=== PATIENT | female | born 1935 | race African-American/Black ===

== ENCOUNTER 2017-08-31 16:08 | Inpatient (IN) | payer MEDICARE, OTHER ==
[~2017-08-31] VITALS: Ht 162.6 cm; Wt 68.0 kg
[~2017-08-31 16:08] MED LIST: AMLODIPINE BESY10 MG ORAL; ATORVASTATIN CA20 MG ORAL; CATAPRES0.1 MG ORAL; CLONIDINE0.1 MG ORAL; COMPAZINE10 M2 PO; COMPAZINE10 MG ORAL; COUMADIN10 MG ORAL; DETROL2 MG ORAL; DIGOXIN0.125 MG/2 ORAL; DITROPAN10 MG ORAL; ECOTRIN81 MG ORAL; FAMOTIDINE20 MG ORAL; LANOXIN125 MCG ORAL; LOPRESSOR25 M1 ORAL; LOW DOSE ASPIRI81 MG PO; MEROPENEM500 MG IV; METOPROLOL TART25 MG ORAL; METOPROLOL TART50 M1 ORAL; MULTI VITAMIN1 EACH ORAL; MULTIVITAMINS1 EAC2 ORAL; NITROGLYCERIN0.4 MG SL; NORVASC10 MG ORAL; OLANZAPINE2.5 MG ORAL; SALINE 10ML FLU10 ML IVF; SIMVASTATIN20 MG ORAL; SINEMET 25-1001 EAC1 ORAL; TYLENOL650 MG/20. ORAL; XARELTO15 MG ORAL; ZYPREXA2.5 MG ORAL
[2017-08-31] MEDS ORDERED: MILK OF MA400 MG/51 ORAL (16:15)
[2017-08-31] MEDS ORDERED: NEPHROVITE1 TAB ORAL (16:15)
[2017-08-31] MEDS ORDERED: Acetaminophen 650 MG SUPP RECTAL ONE (16:30)
[2017-08-31 16:32] VITALS: BP 97/59
--- NOTE | 2017-08-31 16:34 | Emergency Room Report ---
History of Present Illness General Chief Complaint: General Complaint Source: Patient Present Illness HPI 82-year-old female, coming from care home, history of COPD, paroxysmal atrial fibrillation, Parkinson's disease, CHF, CAD, G2, colostomy, left-sided nephrostomy (for apparent large left renal calculi), presenting with low blood pressure and blood coming from left nephrostomy. Upon medical records, the patient was recently discharged from outside hospital on August 28. Patient was admitted for nephrostomy tube dislodgment. She had it replaced. Patient had borderline blood pressure, afebrile. Patient is awake alert, however poor historian Allergies: Coded Allergies: No Known Allergies (Verified , 02/10/08) Patient History Past Medical History: see triage record Past Surgical History: none Pertinent Family History: none Reviewed Nursing Documentation: PMH: Agreed, PSxH: Agreed Nursing Documentation-PMH Past Medical History: No History, Except For Hx Cardiac Problems: Yes - AFIB Hx Hypertension: Yes - HYPERLIPIDEMIA Hx Pacemaker: Yes Hx Asthma: No - SEPSIS Hx Cancer: No Hx Gastrointestinal Problems: No - GERD Hx Neurological Problems: Yes - hx of dementia Hx Cerebrovascular Accident: No Hx Dementia: Yes Hx Parkinson's Disease: Yes Hx Syncope: Yes Hx Weakness: Yes Review of Systems All Other Systems: limited Physical Exam Vital Signs Date Time Temp Pulse Resp B/P (MAP) Pulse Ox O2 Delivery O2 Flow Rate FiO2 08/31/17 16:00 97.0 120 18 105/70 97 Room Air Sp02 EP Interpretation: reviewed, normal General Appearance: other - Elderly, chronically ill patient, awake and alert, currently does not appear to be in pain or acute distress Head: normocephalic, atraumatic Eyes: bilateral eye normal inspection, bilateral eye PERRL, bilateral eye EOMI ENT: normal ENT inspection, normal pharynx, normal voice, moist mucus membranes Neck: normal inspection, full range of motion, supple Respiratory: normal inspection, lungs clear, normal breath sounds, no respiratory distress, no retraction, no wheezing, speaking full sentences, chest symmetrical Cardiovascular #1: normal inspection, regular rate, rhythm, normal capillary refill Cardiovascular #2: 2+ radial (R), 2+ radial (L) Gastrointestinal: other - G-tube in place, right-sided colostomy, left-sided nephrostomy draining gross hematuria Musculoskeletal: normal inspection, back normal, normal range of motion, non- tender Neurologic: alert, responsive, motor strength/tone normal, sensory intact, speech normal Skin: normal inspection, normal color, no rash, warm/dry, well hydrated, normal turgor Procedures Critical Care Time Critical Care Time 40 minutes of CC time 82-year-old female, low blood pressure, hematuria VS: Tachycardic, febrile, borderline hypotensive Airway patent. Not hypoxic. PLAN: IV access, labs, lactate, troponin, Blood/Urine Cx, Abx, IVF Anticipate admission to Tele vs. LUCY CC time also includes review of labs, review of EMR, discussion with family and paperwork from SNF, d/w hospitalist CC could include dosing of pressors, additional Abx CC time does not include procedures Medical Decision Making Diagnostic Impression: Primary Impression: UTI (urinary tract infection) Additional Impressions: Hematuria Severe sepsis ER Course 82-year-old female, bleeding from left-sided nephrostomy, also found to be febrile with a borderline blood pressure DDX: Sepsis 2/2 UTI, PNA, bacteremia Left-sided nephrostomy tube complication Plan: Airway patent, not hypoxic IV fluid for 30 mL per kg bolus will not be given due to patient having CHF Obtain labs including cbc, bmp, blood culture, lactate, ua, ucx CXR EKG Broad spectrum ABX ER course: Pt's airway remains patent, supplemental O2 provided by NC Given broad spectrum abx - vancomycin and cefepime BP improved with fluids mental status remains awake and alert Sepsis Re-examination Time: 6 PM VS: Temp 99 HR 115 BP 135/75 RR 25 CVS: RRR Respiratory: Lungs clear bilaterally Peripheral pulses: 2+ radial Capillary refill: <2 seconds Skin exam: warm, dry, no rash, not mottled Disposition: Patient will admitted to telemetry Patient requires close monitoring of respiratory/hemodynamic status and continuation of IV antibiotics. D/W Hospitalist ANDRES Carlin Please note that this Emergency Department Report was dictated using Portable Scoresther[employer] molder technology software, occasionally this can lead to erroneous entry secondary to interpretation by the dictation equipment. EKG Diagnostic Results EP Interpretation: Yes Rate: Tachycardic Rhythm: NSR ST Segments: ST depressions notedII2 and aVF ASA given to patient: No Rhythm Strip EP Interpretation: Yes Rate: 121 Rhythm: NSR, no PVCs, no ectopy Chest X-ray CXR: Ordered: Yes 1 view Indication: Chest pain EP interpretation: Yes Interpretation: No consolidation, no effusion, no PTX, no acute cardiopulmonary disease, gastric distention Impression: Gastric distention Electronically signed by Robles Moore MD Laboratory Tests Test 08/31/17 17:00 08/31/17 17:45 White Blood Count 19.1 K/UL (4.8-10.8) H Red Blood Count 4.60 M/UL (4.20-5.40) Hemoglobin 13.3 G/DL (12.0-16.0) Hematocrit 43.0 % (37.0-47.0) Mean Corpuscular Volume 93 FL (80-99) Mean Corpuscular Hemoglobin 29.0 PG (27.0-31.0) Mean Corpuscular Hemoglobin Concent 31.0 G/DL (32.0-36.0) L Red Cell Distribution Width 13.3 % (11.6-14.8) Platelet Count 200 K/UL (150-450) Mean Platelet Volume 7.2 FL (6.5-10.1) Neutrophils (%) (Auto) 96.2 % (45.0-75.0) H Lymphocytes (%) (Auto) 1.9 % (20.0-45.0) L Monocytes (%) (Auto) 1.5 % (1.0-10.0) Eosinophils (%) (Auto) 0.0 % (0.0-3.0) Basophils (%) (Auto) 0.3 % (0.0-2.0) Prothrombin Time 12.7 SEC (9.30-11.50) H Prothrombin Time INR 1.2 (0.9-1.1) H PTT 29 SEC (23-33) Sodium Level 140 MMOL/L (136-145) Potassium Level 4.5 MMOL/L (3.5-5.1) Chloride Level 103 MMOL/L (98-107) Carbon Dioxide Level 25 MMOL/L (21-32) Anion Gap 12 mmol/L (5-15) Blood Urea Nitrogen 26 mg/dL (7-18) H Creatinine 1.4 MG/DL (0.55-1.30) H Estimate Glomerular Filtration Rate mL/min (>60) Glucose Level 149 MG/DL (74-106) H Lactic Acid Level 6.40 mmol/L (0.66-2.22) H 7.90 mmol/L (0.66-2.22) H Calcium Level 10.2 MG/DL (8.5-10.1) H Total Bilirubin 0.8 MG/DL (0.2-1.0) Aspartate Amino Transferase (AST) 50 U/L (15-37) H Alanine Aminotransferase (ALT) 19 U/L (12-78) Alkaline Phosphatase 107 U/L (46-116) Troponin I 0.000 ng/mL (0.000-0.056) Pro-B-Type Natriuretic Peptide 718 pg/mL (0-125) H Total Protein 8.6 G/DL (6.4-8.2) H Albumin 2.6 G/DL (3.4-5.0) L Globulin 6.0 g/dL Albumin/Globulin Ratio 0.4 (1.0-2.7) L Urine Color Red Urine Appearance Turbid Urine pH 7 (4.5-8.0) Urine Specific Hobson 1.010 (1.005-1.035) Urine Protein 4+ (NEGATIVE) H Urine Glucose (UA) Negative (NEGATIVE) Urine Ketones 1+ (NEGATIVE) H Urine Occult Blood 5+ (NEGATIVE) H Urine Nitrite Negative (NEGATIVE) Urine Bilirubin Negative (NEGATIVE) Urine Urobilinogen Normal MG/DL (0.0-1.0) Urine Leukocyte Esterase 3+ (NEGATIVE) H Urine RBC Tntc /HPF (0 - 2) H Urine WBC Tntc /HPF (0 - 2) H Urine Squamous Epithelial Cells None /LPF (NONE/OCC) Urine Bacteria Moderate /HPF (NONE) H Last Vital Signs Date Time Temp Pulse Resp B/P (MAP) Pulse Ox O2 Delivery O2 Flow Rate FiO2 08/31/17 16:00 97.0 120 18 105/70 97 Room Air Disposition: ADMITTED INPATIENT Condition: Robles Noe M.D. Aug 31, 2017 16:34
--- NOTE | 2017-08-31 17:06 | Diagnostic Imaging Report ---
Indication: Chest pain Comparison: 07/28/2015 A single view chest radiograph was obtained. Findings: Heart size is normal. Pulmonary vascularity is within normal limits. Exam limited by rotation. Focus of a mediastinal calcification may be related to old granulomatous disease. This is not for certain. The aorta is diffusely ectatic. Bones are osteopenic. Lung volumes are low bilaterally. IMPRESSION: No change from the prior study. No infiltrate or other acute disease identified. Cardiomegaly and atherosclerotic disease of the aorta. Osteoporosis
[2017-08-31] MEDS ORDERED: Cefepime HCl 1 GM in NS 55 ML IV ONE (17:15)
[2017-08-31] MEDS ORDERED: Vancomycin 1 GM in NS 275 ML IVPB ONE (17:15)
[2017-08-31 17:17] LABS: HEMOGLOBIN 13.3 G/DL (12.0-16.0); MEAN CORPUSCULAR VOLUME 93 FL (80-99); PLATELET COUNT 200 K/UL (150-450); RED CELL DISTRIBUTION WIDTH 13.3 % (11.6-14.8); WHITE BLOOD COUNT 19.1 K/UL (4.8-10.8)
[2017-08-31 17:18] LABS: BASOPHILS % (AUTO) 0.3 % (0.0-2.0); LYMPHOCYTES % (AUTO) 1.9 % (20.0-45.0); MONOCYTES % (AUTO) 1.5 % (1.0-10.0); NEUTROPHILS % (AUTO) 96.2 % (45.0-75.0)
[2017-08-31] MEDS ORDERED: Cefepime 1gm vial ONE (17:22)
[2017-08-31] MEDS ORDERED: Vancomycin 1gm inj IVPB ONE (17:22)
[2017-08-31 17:27] LABS: INR 1.2 (0.9-1.1)
[2017-08-31 17:28] VITALS: BP 147/81
[2017-08-31 17:33] LABS: ANION GAP 12 mmol/L (5-15); BLOOD UREA NITROGEN 26 mg/dL (7-18); CALCIUM 10.2 MG/DL (8.5-10.1); CARBON DIOXIDE 25 MMOL/L (21-32); CHLORIDE 103 MMOL/L (98-107); CREATININE 1.4 MG/DL (0.55-1.30); POTASSIUM 4.5 MMOL/L (3.5-5.1); SODIUM 140 MMOL/L (136-145)
[2017-08-31] MEDS ORDERED: NS 275 ML ONE (17:41)
[2017-08-31 17:43] LABS: ALANINE AMINOTRANSFERASE 19 U/L (12-78); ALBUMIN 2.6 G/DL (3.4-5.0); ALBUMIN/GLOBULIN RATIO 0.4 (1.0-2.7); ALKALINE PHOSPHATASE 107 U/L (46-116); ASPARTATE AMINO TRANSFERASE 50 U/L (15-37); BILIRUBIN,TOTAL 0.8 MG/DL (0.2-1.0)
[2017-08-31 18:21] LABS: APPEARANCE,URINE TURBID; BILIRUBIN, URINE NEGATIVE (NEGATIVE); COLOR,URINE RED; GLUCOSE, URINE (UA) NEGATIVE (NEGATIVE); KETONES,URINE 1+ (NEGATIVE); LEUKOCYTE ESTERASE ,URINE 3+ (NEGATIVE); NITRITE,URINE NEGATIVE (NEGATIVE); PH,URINE 7 (4.5-8.0); PROTEIN,URINE 4+ (NEGATIVE); UROBILINOGEN,URINE NORMAL MG/DL (0.0-1.0)
[2017-08-31 18:25] VITALS: BP 135/75
[2017-08-31 20:01] VITALS: BP 103/55
[2017-09-01] VITALS: BP 100/58
[2017-09-01 04:00] VITALS: BP 109/61
[2017-09-01 08:00] VITALS: BP 99/44
[2017-09-01 08:13] LABS: ANION GAP 9 mmol/L (5-15); BLOOD UREA NITROGEN 24 mg/dL (7-18); CALCIUM 9.3 MG/DL (8.5-10.1); CARBON DIOXIDE 25 MMOL/L (21-32); CHLORIDE 109 MMOL/L (98-107); CREATININE 1.3 MG/DL (0.55-1.30); POTASSIUM 4.5 MMOL/L (3.5-5.1); SODIUM 142 MMOL/L (136-145)
--- NOTE | 2017-09-01 08:34 | History & Physical ---
History and Physical History & Physicial [id number] hematuria replaced dislodged left nephrostomy tube at [facility] dc 08/29/17 recurrent uti on meropenem upon admission sepsis pd cad hx of ileostomy and Aileen pouch pCM prior to admission [facility] JOSE ELIAS HERNANDEZ DO Sep 01, 2017 08:34
[2017-09-01 08:47] LABS: HEMATOCRIT 30.9 % (37.0-47.0); HEMOGLOBIN 9.9 G/DL (12.0-16.0); MEAN CORPUSCULAR VOLUME 92 FL (80-99); PLATELET COUNT 148 K/UL (150-450); RED BLOOD COUNT 3.36 M/UL (4.20-5.40)
[2017-09-01] MEDS: Meropenem 500 MG in NS 55 ML IVPB SCH ×2 (09:26→21:01)
[2017-09-01 10:13] LABS: WHITE BLOOD COUNT 23.5 K/UL (4.8-10.8)
[2017-09-01 12:00] VITALS: BP 100/80
--- NOTE | 2017-09-01 12:03 | Diagnostic Imaging Report ---
Indication: Acute renal failure Technique: Grayscale and duplex images of the kidneys, retroperitoneum, and bladder were obtained. Comparison: 11/18/2011 Findings: Right kidney measures 9.4 cm in length. Left kidney measures 8.7 cm in length. Both kidneys demonstrate normal echogenicity. No hydronephrosis. 6 a calcification is seen in the lower pole of the left kidney. This was not definitely demonstrated previously. Normal inferior vena cava. Bladder is normal, nondistended. Impression: Negative for hydronephrosis Nonobstructive left lower pole intrarenal calculus.
[2017-09-01 16:00] VITALS: BP 140/91
--- NOTE | 2017-09-01 16:00 | Cardiology Report ---
APPROVED REPORT EKG Measurement Heart [id number] Sinus tachyarrhythmia with PAC's Increased R/S ratio in V1, consider early transition or posterior infarct T wave abnormality, consider inferior ischemia Abnormal ECG
[2017-09-01 20:00] VITALS: BP 105/66
[2017-09-02] VITALS: BP 115/48
[2017-09-02] MEDS ORDERED: Sterile Water Irrig 1000ml IRRIG ONE (04:44)
[2017-09-02] MEDS ORDERED: Tubing IV Secondary IV ONE (04:44)
[2017-09-02] MEDS ORDERED: Vancomycin 1250mg/D5W 250ml IVPB SCH (17:00)
--- NOTE | 2017-09-02 23:04 | History and Physical Report ---
DATE OF ADMISSION: 08/31/2017 REASON FOR ADMISSION: Hematuria. HISTORY OF PRESENT ILLNESS: This is an elderly female who was recently discharged from [facility] on 08/29/2017 after dislodged left nephrostomy tube that was replaced by Interventional Radiology. She has had persistent hematuria and was brought to the emergency room for further evaluation. She apparently had hypotension and significant bleeding. No reports of nausea, vomiting, or diarrhea. The patient is a poor historian. The patient did come in on [facility] Chest x-ray in the emergency room was negative. PAST MEDICAL HISTORY: Paroxysmal atrial fibrillation, COPD, Parkinson disease, CHF, coronary artery disease, colostomy, left side nephrostomy tube, apparently placed for large left renal calculi and hydronephrosis, and protein-calorie malnutrition. SURGICAL HISTORY: Nephrostomy tube on the left, PEG placement, ileostomy in the right lower quadrant. MEDICATIONS: Prehospital medications reviewed, reconciled, and documented in the electronic medical record by dose, frequency, and route. ALLERGIES: None. SOCIAL HISTORY: Negative for tobacco, alcohol, or drugs. FAMILY HISTORY: Unreliable from the patient. REVIEW OF SYSTEMS: Unreliable as well. PHYSICAL EXAMINATION: GENERAL: At the time of my exam, she is alert, she is oriented to person. VITAL SIGNS: At the time of my exam, she is afebrile, pulse is 82, blood pressure 109/61. She is 97% on 2 L. HEENT: She is normocephalic and atraumatic. Oropharynx is moist. She is edentulous. NECK: Supple without any stiffness or lymphadenopathy. LUNGS: Decreased at the bases. No wheeze present. HEART: Regular rate and rhythm without murmur. ABDOMEN: Soft, nontender. Ileostomy is present. G-tube site is present. EXTREMITIES: With trace lower extremity edema. Moves all extremities spontaneously. The patient is nonambulatory at baseline. LABORATORY VALUES: White count is 19.1, hemoglobin of 13.3, and platelets are 200,000. Her sodium is 140, potassium 4.5, chloride , bicarbonate 25, BUN 26, creatinine 1.4, and glucose is 149. Her lactates were serially drawn at 6.4, 7.9, and 5.5. Calcium is elevated at 10.2. Troponin was negative. DERMATOLOGY SPECIALIST mildly elevated at 718. Her urinalysis was positive for leukocytes and heme. Her INR was 1.2. ASSESSMENT AND PLAN: 1. Gross hematuria. 2. Recent nephrostomy tube dislodgement, status post replacement by Interventional Radiology at [facility] and discharged on 08/29/2017. Nephrostomy tube is secondary to large left renal calculi and has been in place since 01/02/2017. 3. Recurrent urinary tract infections, on meropenem prior to admission. No reports of the sensitivities of urinalysis performed at [facility] prior to discharge. 4. History of renal insufficiency. 5. Hypernatremia. 6. Protein-calorie malnutrition, status post colectomy and Aileen pouch ileostomy, currently on tube feedings. 7. Parkinson disease. 8. Coronary artery disease and paroxysmal atrial fibrillation, currently not on anticoagulation due to recurrent hematuria, as risks of anticoagulation outweighed benefits, per the primary care physician. Plan for the patient, Urology will see the patient. Dr. Veronica has been called. H and H is pending this morning. IV antibiotics have been broadened to include vancomycin in light of white count, on meropenem. P.r.n. nebulizers, G-tube feeds and G-tube feeding. Aspiration precautions. We will transfuse if hemoglobin less than 8 with active bleeding and we will obtain a renal ultrasound and defer further management of hematuria to Dr. Veronica who will see the patient this morning. Angelina Mazariegos D.O. DR: Roman JOB#: [id number] CC:
--- NOTE | 2017-09-02 23:05 | Consultation ---
DATE OF CONSULTATION: 09/01/2017 REFERRING PHYSICIAN: Gavin Carlin M.D. CONSULTING PHYSICIAN: Richard Veronica M.D. REASON FOR CONSULTATION: Evaluation of . HISTORY OF PRESENT ILLNESS: This is an 82-year-old female. She has a history of nephrolithiasis, history of hydronephrosis, history of left nephrostomy and the nephrostomy was recently exchanged at [facility]. She was brought back because of hematuria and UTI. I am unable to get any history from the patient. Most of the history was obtained from the chart. PAST MEDICAL HISTORY: Significant for above, again history of nephrolithiasis, history of coronary artery disease, and history of dementia. PAST SURGICAL HISTORY: Ileostomy and Aileen pouch. MEDICATIONS: Current mediation list was reviewed. She is on meropenem and vancomycin. ALLERGIES: No known drug allergies. SOCIAL HISTORY: She is a resident of prison. FAMILY HISTORY: Unable to obtain. REVIEW OF SYSTEMS: Unable to obtain. PHYSICAL EXAMINATION: GENERAL: Elderly female, no acute distress. VITAL SIGNS: Temperature is 96.9 degrees and blood pressure is 99/44. NECK: Supple. ABDOMEN: Soft. GENITOURINARY: There is a left nephrostomy. Urine is dark bloody. EXTREMITIES: No clubbing. LABORATORY AND DIAGNOSTIC DATA: UA showed too numerous to count RBCs, too numerous to count WBCs, moderate bacteria, and 4+ protein. White count is 23.5, hemoglobin 9.9 and hemoglobin was 13.3 yesterday and platelets are 148. BUN is 24 and creatinine is 1.3. Diagnostic imaging studies, the patient had a chest x-ray, which was reviewed. There is no recent renal imaging here. She did have a CT scan of the abdomen and pelvis back in 2013 and at that time, there was mention of mild to moderate left hydronephrosis, ureteral calculus, nonobstructive calculi, some mild bilateral renal cortical thinning. IMPRESSION: 1. Gross hematuria. 2. Hydronephrosis history. 3. Nephrolithiasis. 4. Urinary tract infection. 5. Proteinuria. 6. Urinary incontinence by report. 7. Neurogenic bladder. 8. Renal atrophy. PLAN AND DISCUSSION: The patient has a nephrostomy tube. The urine draining is bloody dark. I do not see active bleeding. I would personally hand irrigated the nephrostomy, its position is good and no clots. I will recommend to monitor with antibiotics as ordered. Hemoglobin and hematocrit will be monitored. Further recommendations pending. Thank you for this consultation. Richard Veronica M.D. DR: DARIO JOB#: [id number] CC:
--- NOTE | 2017-09-05 12:46 | Discharge Summary ---
Discharge Summary Hospital Course Date of Admission Aug 31, 2017 at 17:29 Date of Discharge Sep 02, 2017 at 04:45 Admitting Diagnosis sepsis HPI Desmond Lee is a 82 year old female who was admitted on Aug 31, 2017 at 17: 29 for Sepsis Hospital Course dc summary #[id number] Discharge Discharge Disposition Patient was discharged to [facility] Discharge Diagnoses: Discharge Instructions Discharge Instructions Special Instructions I have been assigned to complete a D/C Summary on this account. I was not involved in the patient management Wilma Phillips NP (Vanchtein) Sep 05, 2017 12:46
--- NOTE | 2017-09-06 05:16 | Discharge Summary 2 SIG ---
DATE OF ADMISSION: 08/31/2017 DATE OF DISCHARGE: 09/02/2017 REASON FOR ADMISSION: 82-year-old female with a history of COPD, paroxysmal atrial fibrillation, Parkinson disease, CHF, coronary artery disease, colostomy, left nephrostomy, secondary to nephrolithiasis with a history of colectomy and Aileen's pouch ileostomy, currently on tube feeding, presented to the emergency department for evaluation due to the borderline blood pressure and bleeding from left nephrostomy tube. The patient had a recent replacement of nephrostomy tube due to the dislodgement at [facility]. The patient was hypotensive -97/59, febrile - 101.2, tachycardic - 102. Lactic acid - 6.4. Troponin was negative. Pro BNP -718. Urinalysis with evidence of UTI. WBC -19.1. The patient admitted with diagnoses of sepsis, UTI, and hematuria. HOSPITAL COURSE: The patient admitted. Urology consult was requested. The patient started on empiric antibiotics and IV fluids. Urology seen and evaluated the patient. Nephrostomy tube was draining dark blood tinged urine. However, no active bleeding was seen. Urologist personally irrigated the nephrostomy tube and confirmed good position and no clots. He recommended to monitor and continue antibiotics for urinary tract infection. The patient was on empiric antibiotics. Next day, leukocytosis trending up- 23.5. Fever resolved. Tachycardia with some improvement. Blood culture revealed Klebsiella pneumoniae ESBL high grade as well as a Proteus mirabilis. Urine culture revealed Klebsiella pneumoniae, carbapenem resistant, Providencia, and E. Coli. Hemoglobin was trending down next day- 9.9, hematocrit- 30.9. Hematuria improved. Hemoglobin and hematocrit were closely monitored with goal to keep hemoglobin above 8. Renal ultrasound revealed evidence of nonobstructive left lower pole intrarenal calculus, but was negative for hydronephrosis and showed normal echogenicity of bilateral kidneys. Patient with history of paroxysmal atrial fibrillation. Currently not on anticoagulation due to recurrent hematuria, risk outweigh the benefits. Family requested to transfer the patient to [facility] where her usual doctor was. The patient was placed on waiting list, bed was available and the patient subsequently was transferred. The patient was stable for transfer to [facility] for further management. FINAL DIAGNOSES: 1. Severe sepsis with Klebsiella pneumoniae ESBL and Proteus bacteremia. 2. Polymicrobial UTI: Carbapenem-resistant Klebsiella pneumonia/Providencia/E coli urinary tract infection with history of recurrent urinary tract infections. 3. Gross hematuria. 4. Severe protein-calorie malnutrition. 5. History of renal insufficiency. 6. Neurogenic bladder. 7. Nephrolithiasis. 8. Parkinson disease. 9. Coronary artery disease. 10. Paroxysmal atrial fibrillation 11. Status post colectomy and Aileen's pouch ileostomy, on tube feedings. 12. Strict aspiration precautions maintained. The patient able to tolerate tube feeding. DISCHARGE MEDICATIONS: List of medication was sent to accepting facility. DISCHARGE INSTRUCTIONS: The patient was discharged to [facility]. Follow up with medical doctor at the facility. Gavin Carlin M.D. I have been assigned to dictate discharge summary on this account and I was not involved in the patient's management. Wilma Taylorkim N.PGretchen DR: ALEJANDRO JOB#: [id number] CC: STEPHANIE
== END 2017-09-02 04:45 | disposition short-term general hospital (02) | DRG 871 ==
LOC: EDBD 16:08 → EMR 17:22 → 2E 17:29 → EDBEDREQ 18:35 → 2E 20:51
DX: A41.89 Other specified sepsis (principal); E43 Unspecified severe protein-calorie malnutrition; G20 Parkinson's disease; I48.0 Paroxysmal atrial fibrillation; N39.0 Urinary tract infection, site not specified; F03.90 Unspecified dementia, unspecified severity, without behavioral disturbance, psychotic disturbance, mood disturbance, and anxiety; Z43.1 Encounter for attention to gastrostomy; J44.9 Chronic obstructive pulmonary disease, unspecified; N26.1 Atrophy of kidney (terminal); Z16.12 Extended spectrum beta lactamase (ESBL) resistance; N20.0 Calculus of kidney; I25.10 Atherosclerotic heart disease of native coronary artery without angina pectoris; R65.20 Severe sepsis without septic shock; R32 Unspecified urinary incontinence; B96.1 Klebsiella pneumoniae [K. pneumoniae] as the cause of diseases classified elsewhere; Z16.39 Resistance to other specified antimicrobial drug; R31.0 Gross hematuria; N31.9 Neuromuscular dysfunction of bladder, unspecified; Z43.2 Encounter for attention to ileostomy
CPT/HCPCS: 36415; 71045; 76775; 80048; 80053; 81003; 83605; 83880; 84484; 85007; 85025; 85610; 85730; 86850; 86900; 86901; 87040; 87081; 87086; 87181; 93005; 99291